=== PATIENT | male | born 1960 | race Caucasian/White ===

== ENCOUNTER 2023-04-29 08:38 | Emergency (ER) | payer OTHER ==
[2023-04-29] VITALS (8 sets, daily range): BP systolic 117–131; BP diastolic 73–81
[~2023-04-29] VITALS: Ht 172.7 cm; Wt 86.0 kg
[~2023-04-29 08:38] MED LIST: AUGMENTIN875TAB PO; BENZONATATE200 MG PO; CRESTOR10 MG PO; FENOFIBRATE160 MG PO; FLONASE NASAL50 MCG; LISINOPRIL10 MG PO; LORTAB 7.5 OR; MUCINEX600 MG PO; MULTI FOR HIM PO; TESSALON PER100 MG PO; ULTRAM ER100 MG PO; ZITHROMAX500 MG PO
[2023-04-29] MEDS ORDERED: AMOX/K CLAV875 M1 PO (10:10)
[2023-04-29] MEDS ORDERED: RABIES VACCINE, PCEC 2.5 UNITS/VIAL SDV IM ONE (10:10)
[2023-04-29] MEDS ORDERED: CEPHALEXIN500 M1 PO (10:10)
[2023-04-29] MEDS ORDERED: RABIES IMMUNE GLOBULIN 1,500 IU/10 ML SDV IM ONE (10:10)
== END 2023-04-29 11:10 | disposition home or self-care (01) | DRG 605 ==
LOC: ED 08:38
DX: S81.852A Open bite, left lower leg, initial encounter (principal); L03.116 Cellulitis of left lower limb; I10 Essential (primary) hypertension; W55.51XA Bitten by raccoon, initial encounter